=== PATIENT | male | born 1985 | race Hispanic/Latino ===

== ENCOUNTER 2019-07-09 06:46 | Inpatient (IN) | payer SELFPAY ==
[~2019-07-09] VITALS: Ht 165.1 cm; Wt 88.9 kg
--- NOTE | 2019-07-09 07:24 | NUR ---
PT UPDATED AND AWARE OF NPO STATUS. LAST FLUID THIS AM GATORADE ON WAY TO WORK 6AM; ATE LAST YESTERDAY.
[2019-07-09] MEDS ORDERED: MORPHINE SULFATE 2 MG/ML SYR 1ML IV STA (07:56)
[2019-07-09] MEDS ORDERED: ONDANSETRON HCL INJ 2MG/ML 2ML 2 MG/ML VIAL IV STA (07:56)
[2019-07-09] MEDS ORDERED: SODIUM CHLORIDE 0.9% 1000ML 1,000 ML ONE (07:57)
[2019-07-09] MEDS ORDERED: ONDANSETRON HCL INJ 2MG/ML 2ML 2 MG/ML VIAL ONE ×2 (08:01→18:22)
[2019-07-09] MEDS ORDERED: MORPHINE SULFATE INJ 4 MG/ML INJ 1ML ONE (08:01)
[2019-07-09] MEDS ORDERED: IOPAMIDOL 370 MG/ML 200 ML INFUS..BTL INJ ONE (08:03)
[2019-07-09] MEDS ORDERED: SODIUM CHLORIDE 0.9% 50ML 50 ML ONE (08:03)
[2019-07-09] MEDS ORDERED: MORPHINE SULFATE INJ 4 MG/ML INJ 1ML IV STA (08:14)
--- NOTE | 2019-07-09 08:19 | Emergency Department Note ---
History of Present Illnes History of Present Illness Chief Complaint: Abdominal Complaints History of Present Illness This is a 33 year old male who presents with a 3 day history of progressively worsening RLQ pain. Pain is constant, with some intense fluctations. Pain is worse with movement. Pt denies any f/c/n/v/d. He had a BM yesterday, which he states was slightly "loose." He denies any sick contacts or known COVID 19 exposures. . 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 Rn Integrity Required: No Onset (how long ago): day(s) (3) Location: RLQ and lower abdomen Quality: sharp/stabbing Radiation: non-radiation Severity: severe Onset quality: sudden Duration (how long): day(s) (3) Timing of current episode: constant, intermittent Progression: worsening Chronicity: new Context: recent illness, recent surgery, trauma/injury Relieving factors: rest (avoiding movement) Exacerbating factors: none Associated symptoms: denies other symptoms Treatments prior to arrival: none Past Medical/Family History Physician Review I have reviewed the patient's past medical and family history. Any updates have been documented here. Past Medical History Recent Fever: No Clinical Suspicion of Infectio: No New/Unexplained Change in Ment: No Past Medical History: None Past Surgical History: None Social History Smoking Cessation: Never Smoker Counseling Performed: No Alcohol Use: Occasional Any Illegal Drug Use: No TB Exposure/Symptoms: No Physically hurt or threatened: No Family History Family history of heart diseas: No Other Last Tetanus: UNKNOWN Any Pre-Existing Lines (PICC,: No Is patient up to date on immun: Yes Last Flu: NO Last Pneumovax: NO Review of Systems Review of Systems Constitutional: no symptoms EENTM: no symptoms Cardiovascular: no symptoms Respiratory: no symptoms Gastrointestinal: abdominal pain Genitourinary: no symptoms Musculoskeletal: no symptoms Neurological: no symptoms Psychological: no symptoms Review of other systems All other systems reviewed and negative. Physical Exam Related Data Allergies: Coded Allergies: No Known Allergies (Unverified , 07/09/19) Triage Vital Signs Vital Signs Date Time Temp Pulse Resp B/P (MAP) Pulse Ox O2 Delivery O2 Flow Rate FiO2 07/09/19 06:49 98.2 84 16 134/84 100 Vital signs reviewed: Yes Physical Exam CONSTITUTIONAL Constitutional: other (appears uncomfortable) HENT HENT: normocephalic, atraumatic, oropharynx clear/moist, nose normal HENT L/R: left ext ear normal, right ext ear normal EYES Eyes: PERRL, conjunctivae normal NECK Neck: ROM normal PULMONARY Pulmonary: effort normal, breath sounds normal CARDIOVASCULAR Cardiovascular: regular rhythm, heart sounds normal, capillary refill normal, normal rate GASTROINTESTINAL Abdominal: soft, bowel sounds normal, distension, tender (RLQ ttp with guarding), guarding GENITOURINARY Genitourinary: exam deferred SKIN Skin: warm, dry MUSCULOSKELETAL Musculoskeletal: ROM normal NEUROLOGICAL Neurological: alert, oriented x 3, no gross motor or sensory deficits PSYCHOLOGICAL Psychological: mood/affect normal, judgement normal Results Laboratory Lab results reviewed: Yes Laboratory comments UA - bili-small; pro - 30 mg/dl CBC - WBC = 17.7, nl H/H, nl plts CMP - CMP, liver - nl - ALT = 50, GGT = 113, TP = 8.3; with nl amylase Imaging Imaging results reviewed: Yes Imaging Comments [place] [address] Patient Name: JASPAL FERREIRA MR #: [id number] : 1985 Age/Sex: 33/M Req #: [id number] Adm Physician: Ordered by: GABINO MORIN MD Report #: [id number] Location: [facility] Room/Bed: Procedure: [id number] HOPD/CT ABD/PEL WITH CONTRAST-[facility] Exam Date: 07/09/19 Exam Time: 0820 REPORT STATUS: Signed CT of the abdomen and pelvis. Comparison: None Clinical History: Right lower quadrant pain with leukocytosis Technique: Helical CT scan of the abdomen and pelvis was performed. Intravenous contrast administration was utilized. Oral contrast administration was not utilized. Coronal and sagittal reconstructions were generated from the raw data. Multiple images were submitted for interpretation. This exam was performed according to our departmental dose-optimization program which includes automated exposure control, adjustment of the mA and/or kV according to patient size Discussion: Inferior chest: Minimal scarring in the left lung base.. Liver: Low density suggestive of diffuse fatty infiltration. Spleen: Unremarkable Pancreas: Unremarkable Biliary tree and gallbladder: Unremarkable Adrenal glands: Unremarkable Kidneys and ureters: Unremarkable Vasculature: Unremarkable Lymph nodes: No lymphadenopathy Bowel: Large right lower quadrant area of phlegmon with surrounding infiltration of the peritoneal and mesenteric fat. Thickening of the terminal loops of the ileum in the vicinity. An appendicolith is not definitely seen. There is no free air. The findings are most consistent with acute appendicitis. There is no abscess formation. Pelvis: Urinary bladder is unremarkable. Prostate unremarkable. Seminal vesicles unremarkable. Pelvic wall unremarkable. Peritoneum: As above. There is trace amount of infiltration in the rectovesical pouch. Perineal compartments: unremarkable. Fluid: No free fluid. Bones: Unremarkable Body wall: Unremarkable Impression: Findings most suggestive of acute appendicitis with phlegmon but without abscess formation. The findings were communicated to Dr. Morin in the emergency room by Dr. Gaitan. Signed by: Mary Gaitan MD on 07/09/2019 9:36 AM Dictated By: MARY GAITAN MD 5 Transcribed By: BRIANNA on 07/09/19935 COPY TO: GABINO MORIN MD~ Diagnostics Tests Diagnostic test(s) reviewed: Yes Critical Care Time Subsequent provider I assumed direction of critical care for this patient from another provider of my specialty. Assessment & Plan Assessment & Plan Final Impression: (1) Acute appendicitis (2) Abdominal pain (3) Leukocytosis Assessment & Plan - Pt to be admitted for surgery to remove inflamed appendix. Case discussed with general surgery control system computer scientist, Dr. Pimentel who is agreeable to the admission. - Zosyn started, for elevated WBC without fever - Pain improved somewhat, with MSO4. - Discussed with patient and he is agreeable to transfer to [facility] for the surgical procedure. Also, spoke with patient's next of kin, his Aunt, Pavithra Ferreira, by phone and updated her, at patient's request. 10:20 - continue to await a callback from general surgery control system computer scientist, Dr Mckenna, who is apparently in a case in the OR currently. Pt remains stable. 10: 39 - case discussed with Dr. Pimentel, who will admit patient for further management Depart Disposition: ADMITTED Last Vital Signs Date Time Temp Pulse Resp B/P (MAP) Pulse Ox O2 Delivery O2 Flow Rate FiO2 07/09/19 06:49 98.2 84 16 134/84 100 Medications in the ED Sodium Chloride 1,000 ml @ ud STK-MED ONCE .ROUTE ; Start 07/09/19 at 07:57; Stop 07/09/19 at 07:55; Status DC Ondansetron HCl 4 mg STK-MED ONCE .ROUTE ; Start 07/09/19 at 08:01; Stop 07/09/19 at 07:55; Status DC Morphine Sulfate 4 mg STK-MED ONCE .ROUTE ; Start 07/09/19 at 08:01; Stop 07/09/19 at 07:56; Status DC Sodium Chloride 50 ml @ ud STK-MED ONCE .ROUTE ; Start 07/09/19 at 08:03; Stop 07/09/19 at 08:01; Status DC Iopamidol 74,000 mg STK-MED ONCE INJ ; Start 07/09/19 at 08:03; Stop 07/09/19 at 08:01; Status DC Morphine Sulfate 4 mg NOW STAT IV ; Start 07/09/19 at 07:56; Stop 07/09/19 at 07:57; Status UNV Ondansetron HCl 4 mg NOW STAT IV ; Start 07/09/19 at 07:56; Stop 07/09/19 at 07:57; Status UNV GABINO MORIN MD July 09, 2019 08:19
[2019-07-09] MEDS ORDERED: SODIUM CHLORIDE 0.9% 1000ML 1,000 ML IV SCH (08:45)
--- NOTE | 2019-07-09 09:39 | Diagnostic Imaging Report ---
CT of the abdomen and pelvis. Comparison: None Clinical History: Right lower quadrant pain with leukocytosis Technique: Helical CT scan of the abdomen and pelvis was performed. Intravenous contrast administration was utilized. Oral contrast administration was not utilized. Coronal and sagittal reconstructions were generated from the raw data. Multiple images were submitted for interpretation. This exam was performed according to our departmental dose-optimization program which includes automated exposure control, adjustment of the mA and/or kV according to patient size Discussion: Inferior chest: Minimal scarring in the left lung base.. Liver: Low density suggestive of diffuse fatty infiltration. Spleen: Unremarkable Pancreas: Unremarkable Biliary tree and gallbladder: Unremarkable Adrenal glands: Unremarkable Kidneys and ureters: Unremarkable Vasculature: Unremarkable Lymph nodes: No lymphadenopathy Bowel: Large right lower quadrant area of phlegmon with surrounding infiltration of the peritoneal and mesenteric fat. Thickening of the terminal loops of the ileum in the vicinity. An appendicolith is not definitely seen. There is no free air. The findings are most consistent with acute appendicitis. There is no abscess formation. Pelvis: Urinary bladder is unremarkable. Prostate unremarkable. Seminal vesicles unremarkable. Pelvic wall unremarkable. Peritoneum: As above. There is trace amount of infiltration in the rectovesical pouch. Perineal compartments: unremarkable. Fluid: No free fluid. Bones: Unremarkable Body wall: Unremarkable Impression: Findings most suggestive of acute appendicitis with phlegmon but without abscess formation. The findings were communicated to Dr. Morin in the emergency room by Dr. Barnard. Signed by: Ricky Barnard MD on 07/09/2019 9:36 AM
[2019-07-09] MEDS ORDERED: PIPER-TAZ 3.375 GM 50 ML IV ONE (09:45)
[2019-07-09] MEDS: SODIUM CHLORIDE 0.9% 1000ML 1,000 ML IV SCH ×2 (10:30→16:39)
--- NOTE | 2019-07-09 10:52 | NUR ---
[facility] CALLED FOR TRANSPORT
--- NOTE | 2019-07-09 11:57 | NUR ---
report and paperwork to ems.
[2019-07-09 12:24] VITALS: BP 125/75
--- NOTE | 2019-07-09 12:25 | NUR ---
The pt. arrived to the unit from the [facility] awake,alert,oriented. The pt. reports pain 10/10 and is cooperative with the am process. He has no medical history and no allergies to medications. The pt. reports 3 day nondenominational of the pain. The pt. performed medical shower and is ready for surgery. Consent signed.
[2019-07-09] MEDS ORDERED: BUPIVACAINE 0.25% 30ML SDV INJ ONE (12:50)
--- NOTE | 2019-07-09 13:25 | NUR ---
DR. Pimentel visited and the pt. was transported to [facility]. via bed.
[2019-07-09 13:35] VITALS: BP 125/75
[2019-07-09] MEDS ORDERED: PIPER-TAZ 3.375 GM / NS 50ML IV SCH (14:00)
--- NOTE | 2019-07-09 15:13 | Consultation ---
DATE OF CONSULTATION: 07/09/2019 CHIEF COMPLAINT: Abdominal pain. HISTORY OF PRESENT ILLNESS: The patient is a 33-year-old male with 3-day history of pain in right upper quadrant with nausea. No vomiting. No diarrhea, fever, or chills. PAST MEDICAL HISTORY: Negative for any chronic illness or surgery. ALLERGIES: HE HAS NO DRUG ALLERGIES. SOCIAL HABITS: The patient drinks socially, but denies smoking. REVIEW OF SYSTEMS: No chest pain, shortness of breath, cough, or fevers. PHYSICAL EXAMINATION: VITAL SIGNS: Stable. He is afebrile. GENERAL: He is awake, alert, in moderate discomfort. HEENT: Sclerae nonicteric. NECK: Supple. LUNGS: Clear. HEART: Regular rate and rhythm. ABDOMEN: Soft with guarding tenderness in right lower quadrant with some mild rebound. LABORATORY DATA: White cell count 17. CT scan showing inflammations in the right lower quadrant, suggestive of appendicitis. ASSESSMENT: Acute appendicitis. PLAN: Laparoscopic appendectomy. Attendant risks discussed. Royal Pimentel MD DNTimo/MODL /[id number]
--- NOTE | 2019-07-09 16:00 | NUR ---
The pt. returned from surgery sleepy but easily awakened. There are three trocar site covered with band aids and a jhoana drain to the right flank 40cc's emptied. The v/s were taken wnl see graphic
[2019-07-09 16:02] VITALS: BP 145/91
[2019-07-09] MEDS: PIPER-TAZ 3.375 GM 50 ML IV SCH ×2 (16:34→17:04)
[2019-07-09] MEDS ORDERED: LIDOCAINE HCL 2% LOCAL INJ 5 ML SDV VIAL INJ ONE (18:22)
[2019-07-09] MEDS ORDERED: GLYCOPYRROLATE INJ 0.2 MG/ML VIAL ONE (18:22)
[2019-07-09] MEDS ORDERED: ROCURONIUM BROMIDE 10 MG/ML 5ML VIAL IV ONE (18:22)
[2019-07-09] MEDS ORDERED: DEXAMETHASONE SOD PHOS INJ 4 MG/ML VIAL ONE (18:22)
[2019-07-09] MEDS ORDERED: PROPOFOL IV EMULSION 10 MG/ML 20 ML VIAL ONE (18:22)
[2019-07-09] MEDS ORDERED: NEOSTIGMINE 1 MG/ML 10ML VIAL ONE (18:22)
[2019-07-09] MEDS ORDERED: SEVOFLURANE INHAL SOLN 250 ML PEN BTL ONE (18:22)
[2019-07-09] MEDS ORDERED: KETOROLAC TROMETHAMINE 30 MG/ML VIAL ONE (18:22)
[2019-07-09] MEDS ORDERED: FENTANYL CITRATE/PF 100MCG/2 ML INJ ONE (18:42)
[2019-07-09] MEDS ORDERED: MIDAZOLAM HCL 2 MG/2 ML VIAL ONE (18:42)
--- NOTE | 2019-07-09 19:00 | Operative Report ---
DATE OF PROCEDURE: 07/09/2019 SURGEON: Royal Pimentel MD PREOPERATIVE DIAGNOSIS: Appendicitis. POSTOPERATIVE DIAGNOSIS: Perforated appendicitis. OPERATIVE PROCEDURES: Laparoscopic appendectomy and drainage of abscess. ANESTHESIA: General. INDICATION: A 33-year-old male with 3-day history of pain in the right lower quadrant with CT scan showing inflammatory change in the right lower quadrant forming a phlegmon, suggestive of appendicitis. The patient consented for laparoscopic appendectomy. The attendant risks discussed. PROCEDURE FINDING: Phlegmon at the base of the cecum involving the cecum and terminal ileum with appendix not visualized. There was purulent material in the pericecal area. DESCRIPTION OF PROCEDURE: The patient was brought to the OR intubated. The abdomen was prepped and draped in sterile fashion. An infraumbilical incision was made and a 12 mm port inserted. Insufflation began under direct vision. Other port site placed in the right upper quadrant and right lower quadrant. Laparoscopic examination revealed a large phlegmon in the right lower quadrant. With using blunt dissection, the phlegmon was mobilized medially, opening a pocket of clear yellow pus, which was suctioned out. We then proceeded to break up the phlegmon by the omentum from the cecum as well as mobilize the terminal ileum from the adherence to the lateral pelvic sidewall. There was intense inflammation and adherence of the base of the cecum and terminal ileum to the retroperitoneum and pelvic sidewall with no appendix visualized at its usual location at the base of the cecum. At this point, decision was made to drain the area with biopsy of localized tissue to rule out malignancy as the possibility of complete distant disintegration of the appendix in this infectious process. We proceeded to remove a piece of tissue attached to the cecum using the ligature and submitted for pathology. Good hemostasis achieved. We then drained the pericecal and retrocecal area with a 19-Persian Fortino drain, which was taken out through the right lower quadrant port site. The omentum was brought over to cover the area of the ileocecal valve and cecum. All ports then removed under direct vision. Fascia was closed with 0 Vicryl. Skin closed with sharon. The patient was extubated and transported to recovery room. ESTIMATED BLOOD LOSS: Approximately 50 mL. MD DEEPA Templeton/AUGUSTUS /[id number]
--- NOTE | 2019-07-09 19:10 | NUR ---
patient received awake, alert, lying quietly in bed. no c/o pain noted. ivf continues to infuse without difficulty. trochar sites to abd c,d,i. pm assessment complete. patient instructed to call for assistance when needed.
[2019-07-09] MEDS: MORPHINE SULFATE INJ 4 MG/ML INJ 1ML IV PRN ×2 (19:50→23:55)
[2019-07-09] MEDS: ONDANSETRON HCL INJ 2MG/ML 2ML 2 MG/ML VIAL IV PRN ×2 (19:50→23:55)
--- NOTE | 2019-07-09 19:50 | NUR ---
patient medicated with morphine 4mg and zofran 4mg ivp for c/o abd pain 08/28 at this time per patients request.
[2019-07-09 20:00] VITALS: BP 129/81
[2019-07-09 21:26] VITALS: BP 129/81
--- NOTE | 2019-07-09 23:55 | NUR ---
patient medicated with morphine 4mg and zofran 4mg ivp for c/o abd pain 08/28 at this time per patients request. patient instructed to turn from side to side. patient verbalizes understanding of this.
[2019-07-10] VITALS (8 sets, daily range): BP systolic 116–137; BP diastolic 72–81
[2019-07-10] MEDS: PIPER-TAZ 3.375 GM 50 ML IV SCH ×3 (01:46→17:00)
[2019-07-10] MEDS: MORPHINE SULFATE INJ 4 MG/ML INJ 1ML IV PRN ×3 (05:15→13:20)
[2019-07-10] MEDS: ONDANSETRON HCL INJ 2MG/ML 2ML 2 MG/ML VIAL IV PRN ×5 (05:15→21:50)
[2019-07-10] MEDS: SODIUM CHLORIDE 0.9% 1000ML 1,000 ML IV SCH ×3 (05:15→20:53)
--- NOTE | 2019-07-10 05:15 | NUR ---
patient medicated with morphine 4mg and zofran 4mg ivp for c/o abd pain 08/28 at this time per patients request.
[2019-07-10 06:36] LABS: BASOPHILS % 0.2 % (0.0-1.0); HEMATOCRIT 40.3 % (38.2-49.6); LYMPHOCYTES # (AUTO) 0.9 (1.0-3.2); LYMPHOCYTES % 4.5 % (18.0-39.1); MEAN CORPUSCULAR HEMOGLOBIN 28.7 pg (28-32); MEAN CORPUSCULAR HGB CONC 32.3 g/dL (31-35); MONOCYTES # (AUTO) 0.9 (0.2-0.8); MONOCYTES % 4.4 % (4.4-11.3); NEUTROPHILS # (AUTO) 18.6 (2.1-6.9); NEUTROPHILS % 90.3 % (38.7-80.0); PLATELET COUNT 303 x10e3/uL (140-360); RED BLOOD COUNT 4.53 x10e6/uL (4.3-5.7); RED CELL DISTRIBUTION WIDTH 12.8 % (11.7-14.4)
--- NOTE | 2019-07-10 06:46 | NUR ---
Received bedside shift report from off going nurse. Patient is resting in bed, no acute distress noted. Call light within reach. Bed in the lowest position.
[2019-07-10 06:55] LABS: ALANINE AMINOTRANSFERASE 38 IU/L (0-55); ALBUMIN 2.9 g/dL (3.5-5.0); ALBUMIN/GLOBULIN RATIO 0.7 (0.8-2.0); ALKALINE PHOSPHATASE 88 IU/L (40-150); ANION GAP 16.4 mmol/L (8-16); BLOOD UREA NITROGEN 11 mg/dL (7-26); BUN/CREATININE RATIO 13 (6-25); CALCIUM 9.3 mg/dL (8.4-10.2); CARBON DIOXIDE 23 mmol/L (22-29); CHLORIDE 104 mmol/L (98-107); CREATININE, SERUM 0.88 mg/dL (0.72-1.25); EST GLOMERULAR FILTRATION RATE > 60 ML/MIN (60-); GLUCOSE 86 mg/dL (74-118); POTASSIUM 4.4 mmol/L (3.5-5.1); SODIUM 139 mmol/L (136-145)
[2019-07-10 07:48] LABS: LYMPHOCYTES % (MANUAL) 7 % (19-48); MONOCYTES % (MANUAL) 3 % (3.4-9.0); NEUTROPHILS % (MANUAL) 88 % (40-74); PLATELET ESTIMATE ADEQUATE; PLATELET MORPHOLOGY COMMENT NORMAL; RBC MORPHOLOGY COMMENT NORMAL
--- OUTSIDE RECORDS SUMMARY | 2019-07-10 08:54 | XMS REPORT ---
Author Author [facility] t Organization [facility] Address [address] [place] [id number] Phone Unavailable Care Team Providers Care Peer Support Specialist Name Role Phone Cosom MORIN Unavailable Problems This patient has no known problems. Allergies, Adverse Reactions, Alerts This patient has no known allergies or adverse reactions. Medications This patient has no known medications. Procedures This patient has no known procedures. Results Test Description Test Time Test Comments Results Result Comments Source CT ABD/PEL WITH CONTRAST-[facility] 2019-07-09 09:32:00 [place] [address] Patient Name: JASPAL COLLINS MR #: [id number] : 1985 Age/Sex: 33/M Req #: [id number] Adm Physician: Ordered by: GABINO MORIN MD Report #: [id number] Location: [facility] Room/Bed: Procedure: [id number] HOPD/CT ABD/PEL WITH CONTRAST-[facility] Exam Date: 07/09/19 Exam Time: 819 REPORT STATUS: Signed CT of the abdomen and pelvis. Comparison: None Clinical History: Right lower quadrant pain with leukocytosis Technique: Helical CT scan of the abdomen and pelvis was performed. Intravenous contrast administration was utilized. Oral contrast administration was not utilized. Coronal and sagittal reconstructions were generated from the raw data. Multiple images were submitted for interpretation. This exam was performed according to our departmental dose- optimization program which includes automated exposure control, adjustment of the mA and/or kV according to patient size Discussion: Inferior chest: Minimal scarring in the left lung base.. Liver: Low density suggestive of diffuse fatty infiltration. Spleen: Unremarkable Pancreas: Unremarkable Biliary tree and gallbladder: Unremarkable Adrenal glands: Unremarkable Kidneys and ureters: Unremarkable Vasculature: Unremarkable Lymph nodes: No lymphadenopathy Bowel: Large right lower quadrant area of phlegmon with surrounding infiltration of the peritoneal and mesenteric fat. Thickening of the terminal loops of the ileum in the vicinity. An appendicolith is not definitely seen. There is no free air. The findings are most consistent with acute appendicitis. There is no abscess formation. Pelvis: Urinary bladder is unremarkable. Prostate unremarkable. Seminal vesicles unremarkable. Pelvic wall unremarkable. Peritoneum: As above. There is trace amount of infiltration in the rectovesical pouch. Perineal compartments: unremarkable. Fluid: No free fluid. Bones: Unremarkable Body wall: Unremarkable Impression: Findings most suggestive of acute appendicitis with phlegmon but without abscess formation. The findings were communicated to Dr. Morin in the emergency room by Dr. Gaitan. Signed by: Mary Gaitan MD on 07/09/2019 9:36 AM Dictated By: MARY GAITAN MD 5 Transcribed By: BRIANNA on 07/09/19935 COPY TO: GABINO MORIN MD
--- NOTE | 2019-07-10 14:46 | NUR ---
PATIENT AMBULATED ABOUT 340 FT. PATIENT C/O PAIN 11/28. CALLED DR. HSU, ORDERED FOR MORPHINE 4MG ONCE IV NOW.
[2019-07-10] MEDS ORDERED: MORPHINE SULFATE 5 MG/ML VIAL IV ONE (15:00)
[2019-07-10] MEDS ORDERED: MORPHINE SULFATE INJ 4 MG/ML INJ 1ML IV ONE (15:00)
[2019-07-10] MEDS: HYDROMORPHONE 1MG/1ML INJ IV PRN ×2 (17:29→21:50)
--- NOTE | 2019-07-10 18:47 | NUR ---
BEDSIDE SHIFT REPORT GIVEN TO ONCOMING NURSE. PATIENT IS IN STABLE CONDITION, NO ACUTE DISTRESS NOTED AT THIS TIME. CALL LIGHT WITHIN REACH. BED IN THE LOWEST POSITION.
--- NOTE | 2019-07-10 19:10 | NUR ---
patient received awake, alert, lying quietly in bed. no c/o pain noted at this time. ivf continue to infuse without difficulty. pm assessment complete. patient instructed to call for assistance when needed.
--- NOTE | 2019-07-10 20:30 | NUR ---
Patient oob and ambulating in hallway without difficulty. patient back to bed with assistance. no c/o pain noted at this time.
[2019-07-11] VITALS (8 sets, daily range): BP systolic 116–146; BP diastolic 72–94
--- NOTE | 2019-07-11 01:00 | NUR ---
patient oob ambulating in hallway without difficulty.
[2019-07-11] MEDS: PIPER-TAZ 3.375 GM 50 ML IV SCH ×3 (01:08→17:00)
[2019-07-11] MEDS: ONDANSETRON HCL INJ 2MG/ML 2ML 2 MG/ML VIAL IV PRN ×4 (01:50→20:46)
[2019-07-11] MEDS: HYDROMORPHONE 1MG/1ML INJ IV PRN ×6 (01:50→20:25)
--- NOTE | 2019-07-11 01:50 | NUR ---
Patient medicated with dilaudid 1mg and zofran 4mg ivp for c/o abd pain 08/28 at this time per patients request.
[2019-07-11] MEDS: SODIUM CHLORIDE 0.9% 1000ML 1,000 ML IV SCH ×3 (05:40→20:46)
--- NOTE | 2019-07-11 05:58 | NUR ---
patient medicated with dilaudid 1mg and zofran 4mg ivp for c/o abd pain 08/28 at this time per patients request.
--- NOTE | 2019-07-11 06:42 | NUR ---
RECEIVED BEDSIDE SHIFT REPORT FROM OFF GOING NURSE. PATIENT IS RESTING IN BED, NO S/S OF DISTRESS NOTED AT THIS TIME. CALL LIGHT WITHIN REACH. BED IN THE LOWEST POSITION.
[2019-07-11 07:07] LABS: BASOPHILS # (AUTO) 0.1 (0.0-0.1); BASOPHILS % 0.2 % (0.0-1.0); EOSINOPHILS % 0.1 % (0.0-6.0); HEMATOCRIT 41.1 % (38.2-49.6); HEMOGLOBIN 13.2 g/dL (14.0-18.0); LYMPHOCYTES % 4.9 % (18.0-39.1); MEAN CORPUSCULAR HGB CONC 32.1 g/dL (31-35); MEAN CORPUSCULAR VOLUME 90.3 fL (81-99); MONOCYTES # (AUTO) 1.8 (0.2-0.8); MONOCYTES % 8.9 % (4.4-11.3); NEUTROPHILS # (AUTO) 17.6 (2.1-6.9); NEUTROPHILS % 85.4 % (38.7-80.0); PLATELET COUNT 311 x10e3/uL (140-360); RED BLOOD COUNT 4.55 x10e6/uL (4.3-5.7); RED CELL DISTRIBUTION WIDTH 12.6 % (11.7-14.4)
[2019-07-11 07:24] LABS: ANION GAP 14.7 mmol/L (8-16); BLOOD UREA NITROGEN 9 mg/dL (7-26); BUN/CREATININE RATIO 10 (6-25); CALCIUM 8.7 mg/dL (8.4-10.2); CARBON DIOXIDE 23 mmol/L (22-29); CHLORIDE 100 mmol/L (98-107); CREATININE, SERUM 0.88 mg/dL (0.72-1.25); EST GLOMERULAR FILTRATION RATE > 60 ML/MIN (60-); GLUCOSE 84 mg/dL (74-118); POTASSIUM 3.7 mmol/L (3.5-5.1); SODIUM 134 mmol/L (136-145)
--- NOTE | 2019-07-11 08:55 | NUR ---
PATIENT AMBULATING DOWN THE IRIZARRY AT THIS TIME. WILL CONTINUE TO MONITOR.
[2019-07-11 09:34] LABS: LYMPHOCYTES % (MANUAL) 6 % (19-48); MONOCYTES % (MANUAL) 4 % (3.4-9.0); NEUTROPHILS % (MANUAL) 90 % (40-74)
[2019-07-11 09:35] LABS: PLATELET ESTIMATE ADEQUATE; PLATELET MORPHOLOGY COMMENT NORMAL; RBC MORPHOLOGY COMMENT NORMAL
--- NOTE | 2019-07-11 12:00 | NUR ---
WOUND CARE SCREENING CONSULT FOR 33 YO MALE ADMITTED TO [facility] WITH A PRESENT HX OF ABD PAIN AND ACUTE APPENDICITIS. APPENDECTOMY 07/09/2019. DRESSING IN PLACE. LINDSEY DRAIN PRESENT WITH DRAINING SEROSANGUINEOUS FLUID. ANYA 20 ON CONSERVATIVE PUP STATUS AND INTERVENTIONS SURFACE: REGULAR VISCO MATTRESS. LABS: WBC-20.57 HGB- 13.2 GLUCOSE 84 SKIN ASSESSMENT COMPLETE, PATIENT PRESENTS WITH A DRESSING TO ABD. PT HAD AN APPENDECTOMY ON 07/09/2019, DRESSING IN PLACE. LINDSEY DRAIN PRESENT AND DRAINING WITH SEROSANGUINEOUS FLUID. NO OTHER AREAS OF CONCERN NOTED AT THIS TIME. RECOMMENDATIONS: NURSING TO CONTINUE TO CHANGE ABDOMINAL DRESSING DAILY AND NEEDED. NURSING TO MONITOR SURGICAL WOUND FOR ANY SIGN AND SYMPTOMS OF INFECTION DAILY AND TO NOTIFY MD. NURSING TO CONTINUE TO MONITOR PATIENT AND KEEP SKIN CLEAN AND FREE FROM LOOSE STOOL OR IRRITATING MOISTURE AND CONTINUE TO FOLLOW MODERATE PUP INTERVENTIONS DAILY. NURSING TO CONTINUE REPOSITION PT SIDE TO SIDE EVERY TWO HOURS AND TO ENCOURAGE PT TO SELF REPOSITION IN BED NEEDED. NURSING TO MAINTAIN REGULAR VISCO PRESSURE MATTRESS. NURSING TO CONTINUE TO OFFLOAD FEET AND HEELS AT ALL TIMES WITH PILLOW SUSPENSION WHEN IN BED. NURSING TO CONTINUE TO ASSIST WITH PT NUTRITIONAL SUPPLEMENTS TO ENSURE PROPER REQUIREMENTS FOR HEALING. NURSING TO CONTINUE TO ASSIST PT OUT OF BED DURING NUTRITIONAL MEALS MUCH TOLERATED. NURSING TO CONSULT WOUND CARE NEEDED. Addendum: 07/11/19 at 1440 by Eryn Mott RN Amended: Links added.
[2019-07-11] MEDS ORDERED: HYDROMORPHONE 1MG/1ML INJ IV NR (16:20)
--- NOTE | 2019-07-11 18:49 | Diagnostic Imaging Report ---
EXAMINATION: CT of the abdomen and pelvis with contrast. TECHNIQUE: Spiral CT images of the abdomen and pelvis were performed from the lung bases to the lesser trochanters after the intravenous administration of 100 cc of Isovue 370 and the oral administration of water. Coronal and sagittal reformatted images were obtained. COMPARISON: CT abdomen and pelvis 07/09/2019 CLINICAL HISTORY:Postop pain and fever, perforated appendicitis status post surgery. DISCUSSION: ABDOMEN/PELVIS: LOWER THORAX:New small bilateral pleural effusions and associated mild compressive atelectasis of bilateral lower lobes. HEPATOBILIARY: Normal hepatic size and contour. Interval development of a 4.4 x 2.2 x 3.2 cm subcapsular lesion in the inferior tip of the right hepatic lobe at segment (series 2, image 39), which measures near fluid density. Minimal peripheral enhancement. No other focal lesions. No intra or extrahepatic biliary ductal dilation. GALLBLADDER: Layering hyperdensity in the dependent portion of the gallbladder lumen may reflect sludge or less likely vicarious excretion of contrast. No radiopaque calculi or wall thickening. SPLEEN: No splenomegaly. PANCREAS: No focal masses or ductal dilatation. ADRENALS: No adrenal nodules. KIDNEYS/URETERS: No hydronephrosis, stones, or solid mass lesions. PELVIC ORGANS/BLADDER: Bladder and prostate are unremarkable. PERITONEUM/RETROPERITONEUM: Small to moderate amount of free fluid in the mid pelvis superior to the bladder (best seen on sagittal image 75 and series 2, image 81). No free air. LYMPH NODES: No intra-abdominal, retroperitoneal, pelvic or inguinal lymphadenopathy. VESSELS: The celiac trunk,superior and inferior mesenteric and bilateral renal arteries are patent The portal, superior mesenteric and splenic veins are patent. GI TRACT: Postoperative changes in the right lower quadrant, consistent with appendectomy, with moderate right lower quadrant fat stranding. No well-defined fluid collections are identified.. There is persistent wall thickening and mild enhancement of the terminal ileum (for examples series 2, image 62), likely reflecting reactive changes. A percutaneous drainage catheter traverses the right anterior lower pelvis wall and courses through the right lower quadrant, with distal tip terminating in the above-mentioned fluid collection in the inferior tip of the right hepatic lobe. No bowel dilation or evidence of obstruction. BONES AND SOFT TISSUE: No aggressive lytic or suspicious sclerotic lesions. Soft tissues are grossly unremarkable. IMPRESSION: 1. 4.4 cm subcapsular lesion in the inferior tip of the right hepatic lobe with minimal peripheral enhancement may represent a small abscess. Of note, the distal tip of the percutaneous drainage catheter is located inside this collection. 2. Postoperative changes in the right lower quadrant. No well-defined enhancing fluid collections to suggest abscess are identified. No free air. 3. New small bilateral pleural effusions and associated mild compressive atelectasis of bilateral lower lobes. This may be a source of postop fever. 4. Persistent likely reactive changes in the terminal ileum. No evidence of obstruction. 5. Small to moderate amount of free fluid in the mid pelvis, likely postoperative. 6. Layering hyperdensity in the dependent portion of the gallbladder may reflect sludge. Signed by: Dr. Gonzalo Huynh M.D. on 07/11/2019 6:46 PM
--- NOTE | 2019-07-11 19:13 | NUR ---
Bedside shift report given to oncoming nurse. Patient is resting in bed, no acute distress noted at this time. Call light within reach. Bed in the lowest position.
--- NOTE | 2019-07-11 19:15 | NUR ---
RECEIVED REPORT FROM DAY NURSE. PATIENT IS RESTING COMFORTABLY IN THE BED. BED IS IN THE LOWEST POSITION AND CALL LIGHT IS WITHIN REACH.
--- NOTE | 2019-07-11 20:55 | NUR ---
PATIENT HAS A TEMPERATURE OF 100.7. PATIENT IS RESTING IN THE BED. PAGED. AWAITING CALL BACK. WILL CONTINUE TO MONITOR PATIENT.
--- NOTE | 2019-07-11 21:01 | NUR ---
MD RETURNED CALL AND GAVE NEW ORDERS FOR ACETAMINOPHEN 650MG PO Q4 HOURS FOR TEMPERATURE GREATER THAN 101.
[2019-07-11] MEDS: ACETAMINOPHEN 325 MG TAB PO PRN (21:19)
[2019-07-12] VITALS: BP 155/111
[2019-07-12] MEDS: HYDROMORPHONE 1MG/1ML INJ IV PRN ×6 (00:46→21:49)
[2019-07-12] MEDS: ONDANSETRON HCL INJ 2MG/ML 2ML 2 MG/ML VIAL IV PRN ×6 (00:46→21:49)
[2019-07-12] MEDS: PIPER-TAZ 3.375 GM 50 ML IV SCH ×3 (01:10→17:45)
[2019-07-12 01:19] LABS: BASOPHILS # (AUTO) 0.1 (0.0-0.1); BASOPHILS % 0.4 % (0.0-1.0); EOSINOPHILS # (AUTO) 0.2 (0.0-0.4); EOSINOPHILS % 0.7 % (0.0-6.0); HEMATOCRIT 42.1 % (38.2-49.6); HEMOGLOBIN 13.4 g/dL (14.0-18.0); LYMPHOCYTES # (AUTO) 1.2 (1.0-3.2); LYMPHOCYTES % 5.5 % (18.0-39.1); MEAN CORPUSCULAR HEMOGLOBIN 28.6 pg (28-32); MEAN CORPUSCULAR HGB CONC 31.8 g/dL (31-35); MEAN CORPUSCULAR VOLUME 89.8 fL (81-99); MONOCYTES # (AUTO) 1.9 (0.2-0.8); MONOCYTES % 8.6 % (4.4-11.3); NEUTROPHILS # (AUTO) 18.4 (2.1-6.9); NEUTROPHILS % 84.3 % (38.7-80.0); PLATELET COUNT 308 x10e3/uL (140-360); RED BLOOD COUNT 4.69 x10e6/uL (4.3-5.7); RED CELL DISTRIBUTION WIDTH 12.5 % (11.7-14.4)
[2019-07-12 01:42] LABS: ANION GAP 15.6 mmol/L (8-16); BLOOD UREA NITROGEN 7 mg/dL (7-26); BUN/CREATININE RATIO 9 (6-25); CARBON DIOXIDE 22 mmol/L (22-29); CHLORIDE 102 mmol/L (98-107); CREATININE, SERUM 0.81 mg/dL (0.72-1.25); EST GLOMERULAR FILTRATION RATE > 60 ML/MIN (60-); GLUCOSE 93 mg/dL (74-118); POTASSIUM 3.6 mmol/L (3.5-5.1); SODIUM 136 mmol/L (136-145)
[2019-07-12 02:21] LABS: BAND NEUTROPHILS % (MANUAL) 2 %; LYMPHOCYTES % (MANUAL) 4 % (19-48); MONOCYTES % (MANUAL) 3 % (3.4-9.0); NEUTROPHILS % (MANUAL) 91 % (40-74); PLATELET ESTIMATE ADEQUATE; PLATELET MORPHOLOGY COMMENT NORMAL; RBC MORPHOLOGY COMMENT NORMAL
[2019-07-12 04:00] VITALS: BP 131/97
[2019-07-12] MEDS: SODIUM CHLORIDE 0.9% 1000ML 1,000 ML IV SCH ×3 (06:13→19:23)
--- NOTE | 2019-07-12 07:00 | NUR ---
received bedside report. pt is alert resting in bed, no s/s of distress. call light within reach and instructed pt to call RN for help. pt has no complaints at this time
--- NOTE | 2019-07-12 07:06 | NUR ---
REPORT GIVEN TO DAY NURSE. PATIENT IS RESTING COMFORTABLY IN THE BED. NO DISTRESS NOTED.
[2019-07-12 08:00] VITALS: BP 130/83
[2019-07-12 09:02] VITALS: BP 130/83
--- NOTE | 2019-07-12 19:18 | NUR ---
RECEIVED REPORT FROM DAY NURSE. PATIENT IS RESTING COMFORTABLY IN THE BED. BED IS IN THE LOWEST POSITION AND CALL LIGHT IS WITHIN REACH.
[2019-07-12] MEDS: ACETAMINOPHEN 325 MG TAB PO PRN (20:24)
[2019-07-12 20:38] VITALS: BP 131/85
[2019-07-12 20:51] VITALS: BP 131/85
[2019-07-13] VITALS (8 sets, daily range): BP systolic 123–141; BP diastolic 82–106
[2019-07-13] MEDS: SODIUM CHLORIDE 0.9% 1000ML 1,000 ML IV SCH ×2 (01:00→10:30)
[2019-07-13] MEDS: HYDROMORPHONE 1MG/1ML INJ IV PRN ×6 (01:49→20:44)
[2019-07-13] MEDS: ONDANSETRON HCL INJ 2MG/ML 2ML 2 MG/ML VIAL IV PRN ×6 (01:49→20:44)
[2019-07-13] MEDS: PIPER-TAZ 3.375 GM 50 ML IV SCH ×3 (02:28→17:06)
--- NOTE | 2019-07-13 06:43 | NUR ---
REPORT GIVEN TO DAY NURSE. PATIENT IS RESTING COMFORTABLY IN THE BED. NO DISTRESS NOTED.
[2019-07-13 06:46] LABS: BASOPHILS # (AUTO) 0.1 (0.0-0.1); BASOPHILS % 0.5 % (0.0-1.0); EOSINOPHILS # (AUTO) 0.4 (0.0-0.4); EOSINOPHILS % 2.3 % (0.0-6.0); HEMATOCRIT 41.2 % (38.2-49.6); HEMOGLOBIN 13.1 g/dL (14.0-18.0); LYMPHOCYTES # (AUTO) 1.1 (1.0-3.2); LYMPHOCYTES % 6.1 % (18.0-39.1); MEAN CORPUSCULAR HEMOGLOBIN 28.7 pg (28-32); MEAN CORPUSCULAR HGB CONC 31.8 g/dL (31-35); MEAN CORPUSCULAR VOLUME 90.2 fL (81-99); MONOCYTES # (AUTO) 1.2 (0.2-0.8); NEUTROPHILS # (AUTO) 14.3 (2.1-6.9); NEUTROPHILS % 83.2 % (38.7-80.0); PLATELET COUNT 312 x10e3/uL (140-360); RED BLOOD COUNT 4.57 x10e6/uL (4.3-5.7); RED CELL DISTRIBUTION WIDTH 12.6 % (11.7-14.4)
--- NOTE | 2019-07-13 07:00 | NUR ---
received bedside report. radiology is at the bedside to take patient down for KUB. no s/s of distress noted in patient.
--- NOTE | 2019-07-13 07:38 | Diagnostic Imaging Report ---
Exam: Abdominal film Clinical History: Postop appendectomy Comparison: CT abdomen and pelvis 07/11/2019 DISCUSSION: Frontal view of the abdomen shows a nonobstructive bowel gas pattern with minimal amount of retained stool.There are no dilated, air-filled loops of bowel. There are no abnormal calcifications.No acute bone abnormality. Drainage catheter is noted in the right abdomen, with distal tip terminating in the lower aspect of the right upper quadrant. Metallic clips project over the lower midabdomen and right lower quadrant IMPRESSION: 1. Nonobstructive bowel gas pattern. No air-filled, dilated loops of bowel. The staff physician below has personally reviewed this exam on the date of dictation. Signed by: Dr. Gonzalo Huynh M.D. on 07/13/2019 7:35 AM
--- NOTE | 2019-07-13 12:08 | NUR ---
paged Dr. Pimentel to check if diet can be advanced. waiting for call back
--- NOTE | 2019-07-13 19:14 | NUR ---
RECEIVED REPORT FROM DAY NURSE. PATIENT IS RESTING COMFORTABLY IN THE BED. BED IS IN THE LOWEST POSITION AND CALL LIGHT IS WITHIN REACH. WILL CONTINUE TO MONITOR PATIENT.
[2019-07-13] MEDS: ACETAMINOPHEN 325 MG TAB PO PRN (20:44)
[2019-07-14] VITALS (7 sets, daily range): BP systolic 115–133; BP diastolic 76–93
[2019-07-14] MEDS: HYDROMORPHONE 1MG/1ML INJ IV PRN ×6 (00:44→23:30)
[2019-07-14] MEDS: ONDANSETRON HCL INJ 2MG/ML 2ML 2 MG/ML VIAL IV PRN ×6 (00:44→23:30)
[2019-07-14] MEDS: PIPER-TAZ 3.375 GM 50 ML IV SCH ×3 (00:55→18:12)
[2019-07-14] MEDS: SODIUM CHLORIDE 0.9% 1000ML 1,000 ML IV SCH ×4 (00:56→23:30)
--- NOTE | 2019-07-14 06:39 | NUR ---
REPORT GIVEN TO DAY NURSE. PATIENT IS RESTING COMFORTABLY IN THE BED. NO DISTRESS NOTED.
--- NOTE | 2019-07-14 07:41 | NUR ---
PATIENT IN BED RESTING WITH EYES CLOSED, NO DISTRESS NOTED. TROCAR SITES TO ABDOMEN WITH STEPHANIE INTACT. LINDSEY DRAIN TO RIGHT ABDOMEN WITH SMALL AMOUNT OF DRAINAGE. BED IN LOWER POSITION, CALL LIGHT AT REACH.
--- NOTE | 2019-07-14 11:07 | NUR ---
MD IN TO SEE PATIENT, NO NEW ORDER RECEIVED.
--- NOTE | 2019-07-14 15:55 | NUR ---
PATIENT ASSISTED WITH SHOWER, LINENS CHANGED. BACK TO BED WITH CALL LIGHT AT REACH.
--- NOTE | 2019-07-14 20:00 | NUR ---
PATIENT RESTING IN BED IN STABLE CONDITION, NO SIGNS OF DISTRESS NOTED. IV FLUIDS ARE RUNNING AT ORDERED RATE AND PATIENT VOICES PAIN AT A LEVEL OF 7 AND WAS MEDICATED ORDERED. THREE TROCAR SITES NOTED ON ABDOMEN DRESSING IS CLEAN, DRY, AND INTACT, LINDSEY DRAIN IS NOTED WITH SEROSANGUINEOUS FLUID. BED IS IN LOWEST POSITION, BOTH SIDE RAILS ARE UP, CALL LIGHT IS WITHIN EASY REACH, WILL CONTINUE TO MONITOR.
[2019-07-15] MEDS: PIPER-TAZ 3.375 GM 50 ML IV SCH ×2 (02:53→09:30)
[2019-07-15] MEDS: HYDROMORPHONE 1MG/1ML INJ IV PRN ×2 (03:33→08:00)
[2019-07-15] MEDS: ONDANSETRON HCL INJ 2MG/ML 2ML 2 MG/ML VIAL IV PRN ×2 (03:33→08:00)
[2019-07-15 04:00] VITALS: BP_SYST 117; BP_SYST 126; BP_DIAS 77; BP_DIAS 78
[2019-07-15 06:11] LABS: BASOPHILS # (AUTO) 0.1 (0.0-0.1); BASOPHILS % 0.5 % (0.0-1.0); EOSINOPHILS # (AUTO) 0.4 (0.0-0.4); EOSINOPHILS % 3.1 % (0.0-6.0); HEMATOCRIT 41.4 % (38.2-49.6); HEMOGLOBIN 13.6 g/dL (14.0-18.0); LYMPHOCYTES # (AUTO) 1.3 (1.0-3.2); LYMPHOCYTES % 9.2 % (18.0-39.1); MEAN CORPUSCULAR HEMOGLOBIN 28.8 pg (28-32); MEAN CORPUSCULAR HGB CONC 32.9 g/dL (31-35); MEAN CORPUSCULAR VOLUME 87.5 fL (81-99); MONOCYTES # (AUTO) 1.2 (0.2-0.8); MONOCYTES % 8.8 % (4.4-11.3); NEUTROPHILS # (AUTO) 10.7 (2.1-6.9); NEUTROPHILS % 77.1 % (38.7-80.0); PLATELET COUNT 442 x10e3/uL (140-360); RED BLOOD COUNT 4.73 x10e6/uL (4.3-5.7); RED CELL DISTRIBUTION WIDTH 12.6 % (11.7-14.4)
[2019-07-15 06:31] LABS: BLOOD UREA NITROGEN 12 mg/dL (7-26); BUN/CREATININE RATIO 13 (6-25); CARBON DIOXIDE 23 mmol/L (22-29); CHLORIDE 103 mmol/L (98-107); CREATININE, SERUM 0.94 mg/dL (0.72-1.25); EST GLOMERULAR FILTRATION RATE > 60 ML/MIN (60-); GLUCOSE 78 mg/dL (74-118); SODIUM 139 mmol/L (136-145)
--- NOTE | 2019-07-15 07:22 | NUR ---
PATIENT ASSISTED WITH SHOWER, BACK TO CHAIR AT THIS TIME. TROCAR SITES TO ABDOMEN WITH STEPHANIE INTACT, LINDSEY DRAIN INTACT TO RIGHT ABDOMEN. CALL LIGHT AT REACH.
[2019-07-15 08:19] VITALS: BP 122/78
--- NOTE | 2019-07-15 09:39 | NUR ---
PATIENT IS ABOUT TO BE DISCHARGED, LINDSEY DRAIN DISCONTINUED ORDERED. IV ABT INFUSING ORDERED. IN BED WITH CALL LIGHT AT REACH.
[2019-07-15] MEDS ORDERED: TYLENOL WITH C1 EACH PO (10:47)
[2019-07-15] MEDS ORDERED: BACTRIM DS TAB1 EACH PO (10:47)
--- NOTE | 2019-07-15 11:15 | NUR ---
PATIENT DISCHARGED HOME. DISCHARGE INSTRUCTIONS, PRESCRIPTIONS, AND FOLLOW UP GIVEN TO PATIENT, HE VERBALIZED UNDERSTANDING. IV TO LEFT AC REMOVED WITH TIP INTACT. ALL PERSONAL ITEMS TAKEN WITH PATIENT. LEFT UNIT PER WHEEL CHAIR TO FRONT LOBBY IN STABLE CONDITION.
== END 2019-07-15 11:07 | disposition home or self-care (01) | DRG 340 ==
LOC: FSED 06:46 → ERHOLD 10:30 → MED/SURG3 12:12 → OBSVTOIN 07-11 07:53 → INTOOBSV 07-11 07:54 → OBSVTOIN 07-11 07:54
PROVIDERS: ADMIT Surgery; ATTEND Surgery
PROC: 0D9W4ZZ Drainage of Peritoneum, Percutaneous Endoscopic Approach (ICD-10-PCS; 2019-07-09)
PROC: 0DTJ4ZZ Resection of Appendix, Percutaneous Endoscopic Approach (ICD-10-PCS; principal; 2019-07-09 13:30)
DX: K35.33 Acute appendicitis with perforation, localized peritonitis, and gangrene, with abscess (principal)
CPT/HCPCS: 36415; 74018; 74177; 80048; 80053; 80076; 81003; 82948; 85025; 87635; 88305; 99251; 99284; G0378; J1100; J1170; J1885; J2001; J2250; J2270; J2405; J2543; J2710; J3010; J7030; Q9967